=== PATIENT | female | born 1975 | race Caucasian/White ===

== ENCOUNTER → 2016-04-21 | Outpatient (REF) | payer OTHER ==
[2016-04-21 14:03] LABS: PERCENT SATURATION 31.1 % (13.2-37.4)
== END ==
LOC: M LAB REF 12:56
PROVIDERS: ATTEND Internal Medicine Medical Oncology
DX: D50.9 Iron deficiency anemia, unspecified (principal)

== ENCOUNTER 2017-01-31 09:57 | Emergency (ER) | payer MEDICAID, OTHER ==
[~2017-01-31] VITALS: Ht 154.9 cm; Wt 55.5 kg
[2017-01-31] MEDS ORDERED: DEPO150I (10:14)
[2017-01-31] MEDS ORDERED: ZYRT10CA PO (10:14)
--- NOTE | 2017-01-31 13:28 | REP ---
Clinical: Lower back pain status post trauma/fall. Technique: AP, lateral, bilateral oblique, and coned-down views of the lumbosacral spine. Findings: Alignment and lordosis maintained. No acute fracture / compression injury or subluxation. No spondylolysis or spondylolisthesis. Minimal age-related changes noted. Right upper quadrant density consistent with cholelithiasis. Impression: Age-related changes to the lumbosacral spine without acute fracture / compression injury or subluxation. Cholelithiasis. Signed by Brien Carr MD 01/31/2017 01:19 P
--- NOTE | 2017-01-31 13:34 | REP ---
THORACIC SPINE: Three AP and lateral views of the thoracic spine performed. There may be some minimal depression of the superior endplate of T5 vertebral body, possibly acute. No other definite compression fracture is seen, with normal thoracic kyphosis and alignment. The T1 through T4 vertebral bodies are not well visualized on the lateral view. The posterior elements appear intact. IMPRESSION: T1 through T4 vertebral bodies are not well see on the lateral view. There may be some minimal depression of the superior endplate of T5, acuity uncertain. Signed by Raul Stark MD 01/31/2017 04:07 P
[2017-01-31] MEDS ORDERED: IBUP80TA PO (14:03)
[2017-01-31 14:09] VITALS: BP 126/78
--- NOTE | 2017-02-01 07:47 | ED PDOC ---
Post-Departure Follow-Up I contacted the patient by telephone and advised her I have placed a referral to [facility] for evaluation of her T5 vertebral injury. She agreed to call [facility] today to make an appointment. 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 she recalls striking her back on the cement step when she fell yesterday. Kaitlin Velasco PA-C Feb 01, 2017 07:47
== END 2017-01-31 14:08 | disposition home or self-care (01) ==
LOC: M ED 09:57
DX: K80.20 Calculus of gallbladder without cholecystitis without obstruction (principal); Z72.0 Tobacco use

== ENCOUNTER 2017-02-09 07:46 | Outpatient (RCR) | payer MEDICAID ==
[~2017-02-09 07:46] MED LIST: DEPO150I; IBUP80TA PO; ZYRT10CA PO
== END 2017-02-10 ==
LOC: M PT 07:46
PROVIDERS: ATTEND Physician Assistant
DX: Z51.89 Encounter for other specified aftercare (principal); S46.991A Other injury of unspecified muscle, fascia and tendon at shoulder and upper arm level, right arm, initial encounter; X58.XXXA Exposure to other specified factors, initial encounter; Y93.9 Activity, unspecified; Y92.9 Unspecified place or not applicable; Y99.8 Other external cause status

== ENCOUNTER 2017-02-15 07:45 | Outpatient (RCR) | payer OTHER, MEDICAID | END 2017-03-13 | LOC: M PT 07:45 | DX: S46.991D Other injury of unspecified muscle, fascia and tendon at shoulder and upper arm level, right arm, subsequent encounter (principal) | CPT/HCPCS: 97010 ==

== ENCOUNTER → 2017-03-02 | Outpatient (REF) | payer OTHER ==
[2017-03-02 18:59] LABS: BASO % 0.4 % (0.0-1.0); EOS % 0.2 % (0.0-3.0); IMMATURE GRANULOCYTE % 0.4 % (0-0); LYMPH # 2.6 10^3/uL (1.5-4.5); LYMPH % 31.7 % (24.0-44.0); MEAN CORPUSCULAR HEMOGLOBIN 32.5 pg (27.0-33.0); MEAN CORPUSCULAR HGB CONC 33.2 g/dl (32.0-36.5); MEAN CORPUSCULAR VOLUME 97.7 fl (80.0-96.0); MONO # 0.5 10^3/uL (0.0-0.8); MONO % 6.2 % (0.0-5.0); NEUTROPHILS # 4.9 10^3/uL (1.8-7.7); NEUTROPHILS % 61.1 % (36.0-66.0); PLATELET COUNT, AUTOMATED 274 10^3/uL (150-450); RED CELL DISTRIBUTION WIDTH 12.4 % (11.5-14.5); WHITE BLOOD COUNT 8.1 10^3/uL (4.0-10.0)
[2017-03-02 19:04] LABS: ALBUMIN 4.3 GM/DL (3.2-5.2); ALBUMIN/GLOBULIN RATIO 1.19 (1.00-1.93); ALKALINE PHOSPHATASE 50 U/L (45-117); ALT/SGPT 18 U/L (12-78); ANION GAP 5 MEQ/L (8-16); AST/SGOT 20 U/L (7-37); BILIRUBIN,TOTAL 0.4 MG/DL (0.2-1.0); BLOOD UREA NITROGEN 19 MG/DL (7-18); CALCIUM LEVEL 8.9 MG/DL (8.5-10.1); CARBON DIOXIDE LEVEL 29 MEQ/L (21-32); CHLORIDE LEVEL 105 MEQ/L (98-107); CREATININE FOR GFR 0.86 MG/DL (0.55-1.02); FERRITIN 21 NG/ML (8-252); GLOMERULAR FILTRATION RATE > 60.0 (>58); GLUCOSE, FASTING 85 MG/DL (70-105); POTASSIUM SERUM 3.6 MEQ/L (3.5-5.1); SODIUM LEVEL 139 MEQ/L (136-145); TOTAL PROTEIN 7.9 GM/DL (6.4-8.2)
[2017-03-02 19:30] LABS: VITAMIN B12 LEVEL 843 PG/ML
[2017-03-02 19:31] LABS: FOLATE 13.4 NG/ML
== END ==
LOC: M LAB REF 18:09
PROVIDERS: ATTEND Nurse Practitioner Adult Health
DX: F41.8 Other specified anxiety disorders (principal); N93.9 Abnormal uterine and vaginal bleeding, unspecified; D64.9 Anemia, unspecified; Z01.84 Encounter for antibody response examination

== ENCOUNTER → 2019-08-07 | Outpatient (CLI) | payer BC, OTHER ==
--- NOTE | 2019-08-07 16:27 | REPPI ---
CHEST, TWO VIEWS: Two views of the chest are performed and compared to a prior study of 07/18/2019. Previously noted right middle lobe infiltrate has essentially resolved. No infiltrate is seen at this time. The heart and mediastinum are unremarkable in appearance. IMPRESSION: Right middle lobe infiltrate has resolved. Electronically Signed by Raul Stark MD 08/07/2019 04:39 P
== END ==
LOC: M PLALAB 12:13 → M PLAIMG 12:13
PROVIDERS: ATTEND Internal Medicine Infectious Disease
DX: Z87.09 Personal history of other diseases of the respiratory system (principal)